=== PATIENT | male | born 1965 | race Hispanic/Latino ===

== ENCOUNTER 2023-11-15 16:17 | Emergency (ER) | payer BC, SELFPAY ==
--- NOTE | 2023-11-15 16:31 | ED.EYEPROB ---
HPI - Eye Problem General Chief complaint: Eye Problems Stated complaint: left eye PVC primer dripped into eye/1 day ago Time Seen by Provider: 11/15/23 16:21 Source: patient and family Mode of arrival: ambulatory Limitations: no limitations History of Present Illness HPI Narrative: Drew is a 58-year-old male patient presenting to the clinic today with complaints of getting PVC primer in his eye yesterday around 1700. Reports he is having some discomfort to the left lower lateral eye when there is a wendi of wind or cold air blows in his left eye. Does have some difficulty focusing-states it is blurry in the left eye but does not have an concern in his peripheral vision. Left eye 20/20 Right eye 20/25 Related Data Allergies Allergy/AdvReac Type Severity Reaction Status Date / Time No Known Allergies Allergy Verified 11/15/23 16:32 Review of Systems Review of Systems: Pertinent positives per HPI. Patient denies any fever, chills, rash, headache, dizziness, cough, shortness of breath, chest pain, palpitations, nausea, vomiting, diarrhea, constipation, abdominal pain, or any urinary issues. PMFSH Comments At the time of my signature, I reviewed and agree with the nursing past medical, surgical, social, and family history. There is no relevant family history pertinent to the patient complaint. Exam Narrative: General: Well-developed, well nourished, in no apparent distress Head: Normocephalic, atraumatic Eyes: Pupils equally round and reactive to light bilaterally, EOM intact, right sclera and conjunctive clear, left sclera mildly injected over the lower medial aspect, no discharge, lids normal, saeed lamp exam performed and show a corneal abrasion to the left lower medial corneal Ears: TMs intact and clear, ear canals clear, no drainage, grossly hearing normal. Nose: Nares patent, no discharge, no inflammation, no sinus tenderness. Mouth: Oral pharynx without lesions or masses, good dentition, MMM. Neck: Supple, trachea midline, no enlargement of anterior or posterior cervical nodes, no thyroid masses or goiter palpable. Cardio: Regular rate and rhythm, s1 and s2 normal, no murmur appreciated. Resp: Clear to auscultation bilaterally, no rhonchi, rales, wheezing or rubs Course Course Emergency Course: Portions of this record may have been created with voice recognition software. Level of Care: Express Care Visit Vital Signs Vital signs: Vital signs reviewed Procedures Other Procedure Procedure 1: Other Procedure: Two drops of tetracaine was instilled with good anesthesia. Fluorescein stain of the left eye was performed with uptake of the dye and epithelial defect was noted to the left lower medial cornea. NO FB, ulcer or dendritic lesions. Upper lid was everted and no FB or lesions were noted. No Oscar sign. Normal saline irrigation eye solution was performed and the patient tolerated the procedure well, no adverse reaction or complications. MDM - Eye Problem MDM Narrative Medical decision making narrative: At the time of visit patient is resting comfortably on the exam table. Patient appears to be nontoxic. Procedures: Wood's lamp exam was performed and shows a corneal abrasion at the left lower medial cornea Plan: Contacted [facility] accessline and spoke with Dejon. Discussed patient case with Dr. Underwood- hedge trimmer at [facility]- He recommends placing the patient on vigamox and artificial tears and have him follow up with him tomorrow at 10:30. Patient agrees to appointment. Dr. Underwood office information with exchanged and given to the patient. Supportive measures were discussed with the patient and they voiced understanding discharge instructions and agrees to treatment plan. Return precautions reviewed Differential Diagnosis Differential diagnosis: Likely corneal abrasion, conjunctivitis, acute iritis, periorbital cellulitis, subconjunctival hemorrhage, glaucoma, corneal ulcer, ruptured globe and other
[2023-11-15 16:33] VITALS: BP 141/84; PULSE 63; RESP 16; TEMP 36.5; O2SAT 98
== END 2023-11-15 17:37 | disposition home or self-care (01) ==
PROVIDERS: Emergency Provider Nurse Practitioner Family; PCP Registered Nurse
DX: H53.8 Other visual disturbances (principal); X58.XXXA Exposure to other specified factors, initial encounter; T65.91XA Toxic effect of unspecified substance, accidental (unintentional), initial encounter; T26.62XA Corrosion of cornea and conjunctival sac, left eye, initial encounter; S05.02XA Injury of conjunctiva and corneal abrasion without foreign body, left eye, initial encounter
CPT/HCPCS: 99213; G0463

== ENCOUNTER 2025-01-09 10:53 | Outpatient (CLI) | payer BC, SELFPAY ==
--- NOTE | ~2025-01-09 | US_ITS ---
EXAMINATION: US soft tissue UE RT DATE: 01/09/2025 11:12 INDICATION: Benign lipomatous neoplasm of the skin and subcutaneous tissues. TECHNIQUE: Multiple grayscale and Doppler ultrasound images of the palpable abnormality at the nutrition services assistant ior right shoulder were obtained. COMPARISON: None FINDINGS/IMPRESSION: Nonspecific 5.5 x 2.3 x 4.8 cm ovoid hypoechoic mass within the musculature at the region of concern. This is statistically most likely to represent an intramuscular lipoma, schwannoma or peripheral ner ve sheath tumor although other solid neoplasms cannot be excluded and would recommend further evaluat ion with pre and postcontrast MRI. Reviewed, dictated and finalized at location A.
== END 2025-01-09 10:54 | disposition home or self-care (01) ==
PROVIDERS: PCP Registered Nurse; Visit Provider Registered Nurse
DX: R22.1 Localized swelling, mass and lump, neck (principal); M62.89 Other specified disorders of muscle; D17.21 Benign lipomatous neoplasm of skin and subcutaneous tissue of right arm; M79.672 Pain in left foot
CPT/HCPCS: 73630; 76882